=== PATIENT | male | born 1960 | race Caucasian/White ===

== ENCOUNTER → 2017-01-07 | Outpatient (CLI) | payer BC ==
--- NOTE | 2017-01-07 15:47 | DIAGNOSTIC IMAGING REPORT ---
RIGHT KNEE 3 VIEWS CLINICAL HISTORY: 56 years-old Male presenting with right knee pain after twisting injury. TECHNIQUE: Frontal, lateral, and sunrise views of the right knee were obtained. COMPARISON: None. FINDINGS: No acute fracture or malalignment. Minimal osteophytosis noted in the lateral and patellofemoral compartments. No significant joint space loss. A knee joint effusion may be present. IMPRESSION: No acute osseous injury of the right knee. Knee joint effusion may be reactive in the presence of trauma rather than representing an intra-articular fracture in the adult patient. Electronically signed by: Howard Del Toro M.D. 01/07/2017 3:45 PM Dictated Date/Time: 01/07/2017 3:44 PM
== END | disposition home or self-care (01) ==
LOC: C.RAD1850 15:31
PROVIDERS: ATTEND Nurse Practitioner
DX: S89.91XA Unspecified injury of right lower leg, initial encounter (principal); X58.XXXA Exposure to other specified factors, initial encounter

== ENCOUNTER → 2017-01-22 | Outpatient (CLI) | payer BC ==
--- NOTE | 2017-01-22 20:12 | DIAGNOSTIC IMAGING REPORT ---
MRI THE RIGHT KNEE NO CONTRAST CLINICAL HISTORY: Right knee pain status post twisting injury COMPARISON STUDY: Conventional radiographic study dated 01/07/2017 FINDINGS: Imaging was performed in the sagittal, coronal, and axial planes. There is a smaller moderate suprapatellar joint effusion. The quadriceps and patellar tendons appear intact. There is no evidence of anterior or posterior cruciate ligament disruption. The lateral collateral ligament appears intact. There is a medial collateral ligament sprain. No tears of the lateral meniscus are visualized. There is a medial meniscus root tear. There is an osteochondral bone lesion involving the medial femoral condyle with extensive subjacent marrow edema. Given the extensive edema, the joint effusion, and history of recent trauma, this is likely posttraumatic. There is a bone bruise involving the medial tibial plateau. The medial femoral condyle osteochondral fragment measures 14 x 3.4 mm. There is an 8 mm nondisplaced osteochondral fracture involving the medial patella. There is chondromalacia patella with mild subchondral marrow edema. IMPRESSION: 1. Osteochondral bone lesion involving the medial femoral condyle with extensive subjacent marrow edema 2. Bone bruise involving the medial tibial plateau 3. 8 mm nondisplaced osteochondral fracture involving the medial patella 4. Chondromalacia patella 5. Root tear of the medial meniscus 6. Medial collateral ligament sprain Electronically signed by: Kieran Hughes M.D. 01/22/2017 8:10 PM Dictated Date/Time: 01/22/2017 8:03 PM
== END | disposition home or self-care (01) ==
LOC: C.MRI 18:28
PROVIDERS: ATTEND Physical Medicine & Rehabilitation Sports Medicine
DX: M89.8X5 Other specified disorders of bone, thigh (principal); S80.12XA Contusion of left lower leg, initial encounter; S82.014A Nondisplaced osteochondral fracture of right patella, initial encounter for closed fracture; M22.41 Chondromalacia patellae, right knee; S83.241A Other tear of medial meniscus, current injury, right knee, initial encounter; S83.411A Sprain of medial collateral ligament of right knee, initial encounter; X50.1XXA Overexertion from prolonged static or awkward postures, initial encounter

== ENCOUNTER → 2017-01-26 | Outpatient (CLI) | payer BC | END | disposition home or self-care (01) | LOC: C.RDSM 14:43 | PROVIDERS: ATTEND Physical Medicine & Rehabilitation Sports Medicine | DX: M25.561 Pain in right knee (principal) ==

== ENCOUNTER → 2017-07-21 | Outpatient (CLI) | payer BC, OTHER | END | disposition home or self-care (01) | LOC: C.RDSM 10:30 | PROVIDERS: ATTEND Physical Medicine & Rehabilitation Sports Medicine | DX: S83.221D Peripheral tear of medial meniscus, current injury, right knee, subsequent encounter (principal); M89.9 Disorder of bone, unspecified; M25.461 Effusion, right knee; X58.XXXD Exposure to other specified factors, subsequent encounter ==